=== PATIENT | male | born 1985 | race Caucasian/White ===

== ENCOUNTER 2018-01-14 17:22 | Emergency (ER) | payer OTHER ==
--- NOTE | 2018-01-14 18:23 | UC ---
General HPI - HPI Summary HPI Summary: 32 yo male presents requesting refills for Metoprolol, acyclovir, and lisinopril /HCTZ. He was scheduled with a PCP for a few weeks ago, but missed this appt. He has since scheduled a new appt, but they cannot see him until next week. He has been out of the above meds for the last few weeks and has noticed some intermittent headaches - indicating to him that his BP is high. Denies dizziness , vision changes, weakness, or persistent headaches. - History of Current Complaint Stated Complaint: PRESCRIPTION REFILL Time Seen by Provider: 01/14/18 18:23 Hx Obtained From: Patient Current Severity: None - Allergy/Home Medications Allergies/Adverse Reactions: Allergies Allergy/AdvReac Type Severity Reaction Status Date / Time No Known Allergies Allergy Verified 02/22/16 09:46 Home Medications: Home Medications Ibuprofen [Advil] 01/14/18 [History] PMH/Surg Hx/FS Hx/Imm Hx - Additional Past Medical History Additional PMH: HSV2 Cardiovascular History: Hypertension GI/ History: Gastroesophageal Reflux - Surgical History Surgical History: None - Family History Known Family History: Positive: Other - father and mother both have Multiple sclerosis, father with stroke - Social History Occupation: Employed Full-time Lives: With Family Alcohol Use: Rare Substance Use Type: Marijuana Smoking Status (MU): Former Smoker - Immunization History Most Recent Influenza Vaccination: not recent Most Recent Tetanus Shot: unknown Most Recent Pneumonia Vaccination: not recent Review of Systems Constitutional: Negative Skin: Negative Respiratory: Negative Cardiovascular: Negative Gastrointestinal: Negative Neurovascular: Negative Musculoskeletal: Negative Neurological: Headache Psychological: Negative All Other Systems Reviewed And Are Negative: Yes Physical Exam - Summary Physical Exam Summary: GENERAL: NAD. WDWN. No pain distress. SKIN: No rashes, sores, lesions, or open wounds. NECK: Supple. Nontender. No lymphadenopathy. CHEST: CTAB. No r/r/w. No accessory muscle use. Breathing comfortably and in no distress. CV: RRR. Without m/r/g. Pulses intact. Brisk cap refill. NEURO: Alert. CN II-XII grossly intact. PSYCH: Age appropriate behavior. Triage Information Reviewed: Yes Vital Signs: Vital Signs: Temp Pulse Resp BP Pulse Ox 97.9 F 117 16 160/111 98 01/14/18 18:24 01/14/18 18:24 08/10/18 18:24 01/14/18 18:24 01/14/18 18:24 Vital Signs Reviewed: Yes Course/Dx - Course Course Of Treatment: Elevated BP, he is currently asymptomatic, but does report intermittent headaches - however he has been out of his BP meds for weeks now. Will refill his medications for 1 month and have him keep his PCP f/u for next week. - Differential Dx - Multi-Symptom Provider Diagnoses: HTN. Med refill Discharge - Sign-Out/Discharge Documenting (check all that apply): Patient Departure - Discharge Plan Condition: Stable Disposition: HOME Prescriptions: Acyclovir [Zovirax] 400 mg PO BID #60 tablet Lisinopril/HCTZ 20/12.5(NF) [Zestoretic 20/12.5(NF)] 1 tab PO DAILY #30 tab Metoprolol Tartrate TAB* [Lopressor TAB*] 25 mg PO BID #60 tab Patient Education Materials: Hypertension (ED) Referrals: No Primary Care Phys,NOPCP [Primary Care Provider] - Additional Instructions: If you develop a fever, shortness of breath, chest pain, new or worsening symptoms - please call your PCP or go to the ED. Your blood pressure was high at todays visit. Please see your primary provider within 4 weeks for recheck and re-evaluation. - Billing Disposition and Condition Condition: STABLE Disposition: Home
[2018-01-14 18:34] VITALS: BP 160/111
== END 2018-01-14 19:16 | disposition home or self-care (01) ==
LOC: UCEAST 17:22
DX: I10 Essential (primary) hypertension (principal); Z76.0 Encounter for issue of repeat prescription; Z87.891 Personal history of nicotine dependence
CPT/HCPCS: 99212; G0463